=== PATIENT | female | born 1950 | race Hispanic/Latino ===

== ENCOUNTER → 2018-07-17 | Day surgery (SDC) | payer MEDICARE ==
[~2018-07-17] MED LIST: ATORVASTATIN CA20 MG PO; DEXTROSE 5% 250ML 250 ML IV ONE; FENTANYL CITRATE/PF 100MCG/2 ML INJ ONE; GLYBURIDE MICRON6 MG PO; LEVEMIR100 UNIT/1 SQ; LIDOCAINE HCL 2% LOCAL INJ 5 ML SDV VIAL INJ ONE; METFORMIN HCL1000 MG PO; MIDAZOLAM HCL 2 MG/2 ML VIAL ONE; PROPOFOL IV EMULSION 10 MG/ML 50 ML VIAL ONE; TOPROL XL50 MG PO; Z.0.GLUCOPHAGE500 MG; Z.0.METOPROLOL TART5; Z.0.SIMVASTATIN20 MG; ZESTRIL10 MG PO
[2018-07-17 09:01] LABS: BASOPHILS % 0.5 % (0.0-1.0); EOSINOPHILS # (AUTO) 0.3 (0.0-0.4); EOSINOPHILS % 7.3 % (0.0-6.0); HEMATOCRIT 33.5 % (34.2-44.1); HEMOGLOBIN 10.4 g/dL (12.0-16.0); LYMPHOCYTES # (AUTO) 0.6 (1.0-3.2); LYMPHOCYTES % 15.6 % (18.0-39.1); MEAN CORPUSCULAR HEMOGLOBIN 27.3 pg (28-32); MEAN CORPUSCULAR VOLUME 87.9 fL (81-99); MONOCYTES # (AUTO) 0.3 (0.2-0.8); MONOCYTES % 7.8 % (4.4-11.3); NEUTROPHILS # (AUTO) 2.6 (2.1-6.9); NEUTROPHILS % 68.5 % (38.7-80.0); PLATELET COUNT 141 x10e3/uL (140-360); RED BLOOD COUNT 3.81 x10e6/uL (3.6-5.1); RED CELL DISTRIBUTION WIDTH 15.4 % (11.7-14.4)
[2018-07-17 10:55] VITALS: BP 144/83
== END | disposition home or self-care (01) ==
LOC: OR 07:37
PROVIDERS: ATTEND Internal Medicine Gastroenterology
DX: D50.9 Iron deficiency anemia, unspecified (principal); K29.50 Unspecified chronic gastritis without bleeding; K52.9 Noninfective gastroenteritis and colitis, unspecified; K31.89 Other diseases of stomach and duodenum; I85.00 Esophageal varices without bleeding; K76.6 Portal hypertension; K64.8 Other hemorrhoids; I10 Essential (primary) hypertension; E11.9 Type 2 diabetes mellitus without complications; F41.9 Anxiety disorder, unspecified; Z79.84 Long term (current) use of oral hypoglycemic drugs; Z79.4 Long term (current) use of insulin
CPT/HCPCS: 36415; 43239; 45380; 82948; 85025; 88305; 88312; 93005; J2001; J2250; 45378

== ENCOUNTER → 2020-10-20 | Outpatient (CLI) | payer MEDICARE ==
[~2020-10-20] MED LIST changes: -DEXTROSE 5% 250ML 250 ML IV ONE; -FENTANYL CITRATE/PF 100MCG/2 ML INJ ONE; -LIDOCAINE HCL 2% LOCAL INJ 5 ML SDV VIAL INJ ONE; -MIDAZOLAM HCL 2 MG/2 ML VIAL ONE; -PROPOFOL IV EMULSION 10 MG/ML 50 ML VIAL ONE
[2020-10-20 13:01] LABS: HEMOGLOBIN 13.1 g/dL (12.0-16.0)
[2020-10-20 13:24] LABS: INR 1.07; PARTIAL THROMBOPLASTIN TIME 32.3 seconds (23.8-35.5); PROTHROMBIN TIME 14.4 seconds (11.9-14.5)
[2020-10-20 15:11] LABS: BODY FLUID APPEARANCE CLOUDY; BODY FLUID TYPE PERITONEAL
[2020-10-20 15:12] LABS: BODY FLUID COLOR YELLOW; RBC,BODY FLUID 65 cells/uL; WBC,BODY FLUID 25 cells/uL
[2020-10-20 17:17] LABS: LYMPHOCYTES,BODY FLUID 38 %; MONO/MACROPHG,BODY FLUID 21 %; NEUTROPHILS,BODY FLUID 41 %
== END ==
LOC: US 12:36
PROVIDERS: ATTEND Internal Medicine Gastroenterology
DX: K74.69 Other cirrhosis of liver (principal); R18.8 Other ascites
CPT/HCPCS: 36415; 49083; 84157; 85014; 85049; 85610; 85730; 87070; 87205; 88112; 88305; 89051

== ENCOUNTER 2022-11-21 15:55 | Emergency (ER) | payer MEDICARE, OTHER ==
[~2022-11-21] VITALS: Ht 157.5 cm; Wt 58.1 kg
[~2022-11-21 15:55] MED LIST changes: +ONDANSETRON ODT8 MG PO; +PEPCID20 MG PO
[2022-11-21] MEDS ORDERED: METHOCARBAMOL 750 MG TAB PO ONE (16:30)
[2022-11-21] MEDS ORDERED: MORPHINE SULFATE 15MG TAB CR PO ONE (16:30)
[2022-11-21] MEDS ORDERED: FENTANYL CITRATE/PF 100MCG/2 ML INJ IV ONE (19:30)
== END 2022-11-21 20:30 | disposition other institution (70) ==
LOC: ER 16:10
DX: S32.010A Wedge compression fracture of first lumbar vertebra, initial encounter for closed fracture (principal); W01.0XXA Fall on same level from slipping, tripping and stumbling without subsequent striking against object, initial encounter; Y93.01 Activity, walking, marching and hiking; Y92.89 Other specified places as the place of occurrence of the external cause; I10 Essential (primary) hypertension; E11.9 Type 2 diabetes mellitus without complications; E78.5 Hyperlipidemia, unspecified; N28.9 Disorder of kidney and ureter, unspecified; K76.9 Liver disease, unspecified; Z20.822 Contact with and (suspected) exposure to COVID-19
CPT/HCPCS: 0223U; 36415; 72131; 99284; J3010